=== PATIENT | female | born 1975 | race Caucasian/White ===

== ENCOUNTER 2021-03-17 18:07 | Emergency (ER) | payer OTHER ==
[~2021-03-17] VITALS: Ht 170.2 cm; Wt 49.9 kg
[~2021-03-17 18:07] MED LIST: prenatal vitamins
[2021-03-17] MEDS ORDERED: SODIUM CHLORIDE 0.9% 1000ML 1,000 ML IV STA ×2 (18:33)
[2021-03-17] MEDS ORDERED: FAMOTIDINE 20 MG/2 ML VIAL IV ONE ×2 (18:45→18:56)
[2021-03-17] MEDS ORDERED: PROMETHAZINE 12.5MG/ NACL 0.9% 12.5 MG/50 ML BAG IV ONE (18:45)
[2021-03-17] MEDS ORDERED: ONDANSETRON ODT4 MG PO (18:54)
[2021-03-17] MEDS ORDERED: ONE-A-DAY PRO200 MCG PO (18:54)
[2021-03-17] MEDS ORDERED: OMEPRAZOLE20 M2 PO (18:54)
[2021-03-17] MEDS ORDERED: PROMETHAZINE HCL (IM) 25 MG/ML VIAL IM ONE (18:56)
[2021-03-17] MEDS ORDERED: SODIUM CHLORIDE 0.9% 1000ML 2,000 ML ONE (18:56)
[2021-03-17] MEDS ORDERED: DIPHENHYDRAMINE HCL INJ 50 MG/ML VIAL IV ONE (20:00)
[2021-03-17] MEDS ORDERED: ONDANSETRON HCL INJ 2MG/ML 2ML 2 MG/ML VIAL IV ONE (20:00)
[2021-03-17] MEDS ORDERED: ONDANSETRON HCL INJ 2MG/ML 2ML 2 MG/ML VIAL ONE (20:02)
[2021-03-17] MEDS ORDERED: DIPHENHYDRAMINE HCL INJ 50 MG/ML VIAL ONE (20:02)
== END 2021-03-17 21:09 | disposition home or self-care (01) ==
LOC: FSED 18:13
DX: R11.2 Nausea with vomiting, unspecified (principal); E86.0 Dehydration; K29.70 Gastritis, unspecified, without bleeding; K20.90 Esophagitis, unspecified without bleeding
CPT/HCPCS: 80053; 85025; 96374; 96375; 99283; J1200; J2405; J2550; J7030